=== PATIENT | female | born 1950 | race Caucasian/White ===

== ENCOUNTER 2018-08-19 14:41 | Inpatient (IN) ==
--- NOTE | 2018-08-19 14:54 | Emergency Department Note ---
Disposition Clinical Impression: Expressive aphasia Disposition: Admitted As Inpatient Condition: Fair Referrals: NONE,PCP [Primary Care Provider] - Forms: ED Satisfaction Letter Time of Disposition: 15:44 Neuro HPI - General Chief Complaint: ED Neuro Symptoms/Deficit Stated Complaint: Nuero symptoms since yesterday Time Seen by Provider: 08/19/18 14:43 Source: patient, EMS Mode of arrival: EMS Limitations: no limitations Nursing Notes Reviewed: Yes Vital Signs Reviewed: Yes - History of Present Illness HPI Narrative: Patient is a 68-year-old female who was seen at [facility] emergency department yesterday for expressive aphasia, had a full stroke workup, returned to baseline, and was discharged home. Patient spoke with a family member on the phone last night at 11 PM and family member states that there speech was normal and at baseline. This morning patient had family visiting her who noticed that she was slurring her words again, so called EMS and had her brought in for evaluation. Patient is not complaining of anything right now, is still smoking approximately a pack and a half per day, but had no complaints of any pain at this moment. Stroke alert was called and patient was taken immediately to CAT scan suite and [facility] was notified. Pt had initial NIHSS of 3. - Related Data Home Medications: Home Medications Medication Instructions Recorded Confirmed amLODIPine [Norvasc] 5 mg PO DAILY 08/10/16 08/19/18 Budesonide/Formoterol 160/4.5 1 puff IH BIDR 08/19/18 08/19/18 [Symbicort 160/4.5] Furosemide [Lasix] 40 mg PO DAILY 08/19/18 08/19/18 Gabapentin [Neurontin] 300 mg PO BID 08/19/18 08/19/18 Lisinopril-HCTZ 10-12.5 [Prinzide 2 each PO DAILY 08/19/18 08/19/18 10-12.5] Metoprolol [Lopressor] 25 mg PO DAILY 08/19/18 08/19/18 Previous Rx's Medication Instructions Recorded Aspirin [Ecotrin] 325 mg PO DAILY 30 Days #30 08/18/18 tablet. Allergies/Adverse Reactions: Allergies Allergy/AdvReac Type Severity Reaction Status Date / Time No Known Allergies Allergy Verified 08/10/16 13:24 Review of Systems: All systems ED: reviewed and negative except as stated. Constitutional: Denies: fever, chills ENT ED: Denies: ear pain, throat pain Cardiovascular: Denies: chest pain, palpitations Respiratory: Denies: cough, Reports: dyspnea Gastrointestinal: Denies: abdominal pain, nausea, vomiting, diarrhea, constipation Genitourinary: Denies: urgency, dysuria, frequency Musculoskeletal: Denies: back pain, neck pain Integumentary: Denies: rash, abrasion Neurological: Denies: headache, weakness, numbness, paresthesias Reports: difficulty with speech Psychiatric: Denies: anxiety, depression Endocrine: Denies: fatigue, heat or cold intolerance Hematological/Lymphatic: Denies: easy bleeding, easy bruising Allergic/Immunologic: Denies: facial swelling, urticaria Past Medical History - Past Medical History Attestation: Yes The following information was validated with the patient. 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 No acute distress. Well developed, well nourished. Head: atraumatic, normocephalic. ENT: No conjunctival injection, no scleral icterus. PERRLA. EOMI. Oropharynx non- erythematous. mucous membranes moist. Neuro: No focal deficits, no speech deficit, no facial droop, mentating well. BUE/BLE Str 5/5 intact sensation. Mild difference in facial palsy when patient is smiling, left side is not as high when compared to right. Pts speech is somewhat difficult to understanding, but words can be made out. Pulm: Wheezes in yoly lungs. On oxygen at baseline. Not requiring more oxygen to maintain appropriate saturation. Cardio: RRR no m/r/g. Chest not tender to palpation. Abd: Soft, non-distended. Normoactive bowel sounds. Non-tender to palpation. No guarding. Non rigid. Extremities: Radial pulses 2+ yoly, No LE edema. No cyanosis, clubbing. Skin: warm, dry, intact. Diffusely dry skin with extensive flaking. Psych: Appropriate mood and affect. Answers questions appropriately. Cooperative with exam. Course Course Narrative: Initial Head CT showed no acute intracranial findings. Will obtain Stroke labs and consult with [facility]. - Consultations Consultation #1: Spoke with Dr. Srinivasan, [facility], who states that since her LKW was 11pm last night and her NIH was 3, that she was not a candidate for tPA and could be kept here for further stroke workup. Time: 15:12 Consultation #2: Updated patient and family on plan of care and they agreed with plan for admission here and further workup. Time: 16:18 Vital Signs Temperature 98.3 F 08/19/18 14:49 Pulse Rate 77 08/19/18 14:49 Respiratory Rate 16 08/19/18 14:49 Blood Pressure 154/67 08/19/18 14:49 O2 Sat by Pulse Oximetry 99 08/19/18 14:49 Temperature 98.3 F 08/19/18 14:49 Pulse Rate 64 08/19/18 16:13 Respiratory Rate 18 08/19/18 16:13 Blood Pressure 131/57 08/19/18 16:13 O2 Sat by Pulse Oximetry 100 08/19/18 16:13 Oxygen Delivery Oxygen Delivery Nasal Cannula Neuro Symptoms/Deficit - MDM Narrative Medical decision making narrative: [facility] recommended that she be worked up here as an inpatient. She was outside of the tPA window, as her LKW was 2300 last night and her NIHSS was very low (3). Pt did not return to baseline while in the department. Discussed findings with patient who was amenable to admission. Patient was given an opportunity to ask questions at bedside and all of their concerns were addressed. Patient verbalized understanding and agreement with plan of care. Pt remained stable while in the department. Spoke with hospitalist, Dr. Morgan, who was agreeable to admission and accepted the patient to his service. - Medical Records Medical records reviewed: Yes I reviewed the patient's medical records. - Lab Data Lab results reviewed: Yes I reviewed the patient's lab results. Result diagrams: 08/19/18 15:04 08/19/18 15:04 Lab Results 08/19/18 08/19/18 08/19/18 Range/Units 15:04 15:04 15:04 WBC 8.2 (4.3-11.1) K/mcL RBC 3.84 (3.82-4.97) M/mcL Hgb 11.1 L (11.5-15.4) g/dL Hct 37.0 (35.3-44.9) % MCV 96.4 (83.0-100.0) fL MCH 28.9 (28.0-33.3) pg MCHC 30.0 L (31.6-35.5) g/dL RDW 12.7 (11.5-14.5) % Plt Count 232 (140-400) K/mcL MPV 10.5 (9.4-12.4) fL PT 11.4 (9.4-12.1) Seconds INR 1.0 APTT 33.7 (26.0-36.0) Seconds Sodium 141 (136-145) mEq/L Potassium 4.6 (3.5-5.1) mEq/L Chloride 103 (98-107) mEq/L Carbon Dioxide 34 H (23-29) mEq/L BUN 38 H (8-23) mg/dL Creatinine 2.12 H (0.60-1.20) mg/dL Est GFR ( Amer) 28 L (> 60) Est GFR (Non-Af Amer) 23 L (> 60) BUN/Creatinine Ratio 18 (6-26) Glucose 117 H (70-105) mg/dL Calculated Osmolality 302 H (280-300) Calcium 9.8 (8.6-10.3) mg/dL Troponin I < 0.03 (< 0.04) ng/mL - Radiology Data Radiology results reviewed: Yes I reviewed the patient's radiology results. Head CT 08/19/18 14:47 IMPRESSION: No acute intracranial abnormality. Findings were discussed with Isadora New at 3:06 pm on 08/19/2018. D/ / Harris Berry MD / Harris Berry MD Interpreting Provider: Harris Berry MD - EKG Data EKG attestation: Yes I reviewed and interpreted this EKG. EKG results narrative: HR 70, Rhythm sinus, axis left. FL 184, QRS 85, QTc 459. No ST elevation or depression. No criteria for LVH. All intervals within normal limits. NIH Stroke Scale - Level of Consciousness LOC: Alert - LOC Questions LOC Questions: Answers both correctly - LOC Commands LOC Commands: Performs both correctly - Best Gaze Best Gaze: Normal - Visual Visual: No visual loss - Facial Palsy Facial Palsy: Minor asymmetry on smiling, flattened nasolabial fold - Motor Arms Motor Arm-Left: No drift for 10 seconds Motor Arm-Right: No drift for 10 seconds - Motor Legs Motor Leg-Left: No drift for 5 seconds Motor Leg-Right: No drift for 5 seconds - Limb Ataxia Limb Ataxia: Absent of affected limb too weak to perform exam - Sensory Sensory: Normal - Best Language Best Language: Mild to moderate aphasia. Examiner can identify picture from response - Dysarthria Dysarthria: Mild, slurs some words - Extinction and Inattention Extinction and Inattention: Normal - NIHSS Total Score NIHSS Total Score: 3 TPA Checklist - LKW: 3-4.5 hrs Add. Warnings/Precautions Patient/family understanding: The patient/family members have been counseled and understood the risk, benefit, and alternatives of treatment.
--- NOTE | 2018-08-19 14:55 | Emergency Department Note ---
Disposition Clinical Impression: Expressive aphasia Disposition: Still a Patient Forms: ED Satisfaction Letter Neuro HPI - General Chief Complaint: ED Neuro Symptoms/Deficit Stated Complaint: Nuero symptoms since yesterday Time Seen by Provider: 08/19/18 14:43 - Related Data Home Medications: Home Medications Medication Instructions Recorded Confirmed Furosemide [Lasix] 60 mg PO DAILY 08/10/16 08/10/16 Gabapentin [Gralise] 300 mg PO TID 08/10/16 08/10/16 Lisinopril [Zestril] 5 mg PO DAILY 08/10/16 08/10/16 amLODIPine [Norvasc] 5 mg PO DAILY 08/10/16 08/10/16 Previous Rx's Medication Instructions Recorded Aspirin [Ecotrin] 325 mg PO DAILY 30 Days #30 08/18/18 tablet. 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 Warnings/Precautions Patient/family understanding: The patient/family members have been counseled and understood the risk, benefit, and alternatives of treatment. Attestation Statement - Attestation Attestation: I examined this patient and my medical decision-making was reviewed with the Resident Physician. I agree with the documented findings, disposition and treatment plan as described except to the extent set forth below. 68 yaer old female presnets to the ED with expressive aphasia that started at 1300 today. Kelley was recenlty admittd to [facility] and had a HCT that was negative. Kelley is dispaying severe expressive aphasia at bedside and we have called STROKE ALERT. update on patient; BOLA was actull 2300 last night before she went to bed, it appears that she woke up this way in the morning.
[2018-08-19 15:11] LABS: Hemoglobin 11.1 g/dL (11.5-15.4); Mean Corpuscular Hemoglobin 28.9 pg (28.0-33.3); Mean Corpuscular Volume 96.4 fL (83.0-100.0); Mean Platelet Volume 10.5 fL (9.4-12.4); Platelet Count 232 K/mcL (140-400); Red Blood Count 3.84 M/mcL (3.82-4.97); Red Cell Distribution Width 12.7 % (11.5-14.5)
[2018-08-19 15:20] LABS: Prothrombin Time 11.4 Seconds (9.4-12.1)
[2018-08-19 15:23] LABS: Activated Partial Thrombo Time 33.7 Seconds (26.0-36.0)
[2018-08-19 15:31] LABS: BUN/Creatinine Ratio 18 (6-26); Blood Urea Nitrogen 38 mg/dL (8-23); Calcium 9.8 mg/dL (8.6-10.3); Carbon Dioxide 34 mEq/L (23-29); Chloride 103 mEq/L (98-107); Glucose 117 mg/dL (70-105); Osmolality,Calculated 302 (280-300); Potassium 4.6 mEq/L (3.5-5.1); Sodium 141 mEq/L (136-145); eGFR For Non-African Americans 23 (> 60)
[2018-08-19 15:32] LABS: Troponin I < 0.03 ng/mL (< 0.04)
[2018-08-19] MEDS ORDERED: Naloxone 0.4 MG/ML INJ IVP PRN (17:08)
--- NOTE | 2018-08-19 17:23 | Internal Med History&Physical ---
Date of Encounter: 08/19/18 Time of Encounter: 17:21 Internal Medicine - H&P: HPI Chief complaint: Speech difficulty Admitted From: Emergency Dept Plans for Post Hospital Care: Home History of present illness: Ms. Padgett is a 68 year old female patient with a history of chronic tobacco abuse, hypertension, who presented to the ER with complaints of expressive if ECF. Symptoms began yesterday morning when she woke up with these symptoms. Family reports that her symptoms improved through the day but she again woke up today morning with similar symptoms and her symptoms have not improved since then. She does not have any other focal weakness. She has blurred vision but she is supposed to be wearing glasses. Denies any ringing sensation in her clears. No headaches. No chest pain or palpitations. No nausea or vomiting. No abdominal pain. Denies any prior history of stroke or TIA. Past Med Surg Social Fam HX - Past Medical History Attestation: Yes The following information was validated with the patient. Source: patient Medical history: hypertension, other Psychiatric history: no psych history - Social History Smoking Status: Current every day smoker Smokeless Tobacco Status: No Alcohol use: none Drug use: none - Additional Family History Additional family history: Family history reviewed and found to be noncontributory at this time Internal Medicine - H&P: Meds amLODIPine [Norvasc] 5 mg PO DAILY 08/10/16 [History] Aspirin [Ecotrin] 325 mg PO DAILY 30 Days #30 tablet. 08/18/18 [Rx] Budesonide/Formoterol 160/4.5 [Symbicort 160/4.5] 1 puff IH BIDR 08/19/18 [History] Furosemide [Lasix] 40 mg PO DAILY 08/19/18 [History] Gabapentin [Neurontin] 300 mg PO BID 08/19/18 [History] Lisinopril-HCTZ 10-12.5 [Prinzide 10-12.5] 2 each PO DAILY 08/19/18 [History] Metoprolol [Lopressor] 25 mg PO DAILY 08/19/18 [History] Allergy/AdvReac Type Severity Reaction Status Date / Time No Known Allergies Allergy Verified 08/10/16 13:24 All Systems PM: A 10-system review of systems was performed and is negative for pertinent findings except as documented above in the HPI. - Constitutional Constitutional: no chills, no fever(s), no night sweats - EENT Eyes: no change in vision, no discharge, no pain, no photophobia Ears: no ear discharge, no ear pain, no tinnitus Nose, mouth and throat: no dysphagia, no nasal discharge, no neck pain, no sore throat - Cardiovascular Cardiovascular ROS IM: no chest pain, no diaphoresis, no dyspnea, no lightheadedness, no palpitations, no syncope - Respiratory Respiratory: no cough, no dyspnea, no wheezing, no excessive phlegm production - Gastrointestinal Gastrointestinal: no abdominal pain, no diarrhea, no hematemesis, no hematochezia, no melena, no nausea, no vomiting - Genitourinary Genitourinary: no change in urinary stream, no dysuria, no flank pain, no hematuria - Musculoskeletal Musculoskeletal ROS IM: no numbness, no tingling - Integumentary Integumentary IM: no rash, no unusual bruising - Neurological Neurological ROS: as per HPI, abnormal speech - Hematologic/Lymphatic Hematologic/Lymphatic: no easy bruising - Constitutional Vitals: Temp Pulse Resp BP Pulse Ox 98.3 F 64 18 131/57 100 08/19/18 14:49 08/19/18 16:13 08/19/18 16:13 08/19/18 16:13 08/19/18 16:13 General appearance: Present: cooperative, mild distress, A&O X 3, pleasant, obese, answers questions appropriately Exam: General: Patient is alert, no acute distress, oriented x 3 Head: atraumatic, normocephalic, ENT: Mucous membranes moist Eye: normal appearance, PERRL, no scleral icterus, no conjunctival injection Neck: normal inspection, trachea midline, full ROM, no carotid bruits Chest: normal inspection, symmetric chest rise Respiratory: Decreased air entry bilaterally. Prolonged expiratory phase and end-expiratory wheezing Cardiovascular: Regular rate and rhythm. s1 and s2 normal No clicks, rubs, gallops, or murmurs. No pedal edema Abdomen: Abdomen is soft, nontender. Bowel sounds are present Musculoskeletal: Spontaneously moving all extremities Skin: warm, dry, intact. Neuro: Alert oriented x 3 normal except expressive aphagia present, rest of cranial nerve examination is normal. No focal deficits. Normal strength and sensation in all 4 extremities. Psych: Patient's affect is normal Internal Med - H&P Results - Labs CBC & Chem 7: 08/19/18 15:04 08/19/18 15:04 Labs: Short CBC 08/19/18 Range/Units 15:04 WBC 8.2 (4.3-11.1) K/mcL Hgb 11.1 L (11.5-15.4) g/dL Hct 37.0 (35.3-44.9) % Plt Count 232 (140-400) K/mcL BMP 08/19/18 15:04 Sodium 141 Potassium 4.6 Chloride 103 Carbon Dioxide 34 H BUN 38 H Creatinine 2.12 H Glucose 117 H Calcium 9.8 Cardiac Enzymes 08/19/18 Range/Units 15:04 Troponin I < 0.03 (< 0.04) ng/mL - EKG Data -: EKG Interpreted by Myself EKG shows normal: sinus rhythm - Impressions ITS Impressions Head CT 08/19/18 14:47 IMPRESSION: No acute intracranial abnormality. Findings were discussed with Isadora New at 3:06 pm on 08/19/2018. D/ / Harris Berry MD / Harris Berry MD Interpreting Provider: Harris Berry MD - Assessment and Plan (1) Expressive aphasia Current Visit: Yes Status: Acute Assessment and plan: Patient presented with symptoms of expressive aphagia. Stroke alert had been called. We will continue with stroke workup as CT of the head was negative. Obtain MRI of the brain, check lipid profile, A1c level. Obtain carotid Dopplers and 2-D echocardiogram. NIHSS monitoring. High risk for complications. Will place patient on aspirin and statin. (2) Chronic kidney disease, stage III (moderate) Current Visit: Yes Status: Chronic Assessment and plan: Creatinine 2.12. At baseline. (3) Essential hypertension Current Visit: Yes Status: Chronic Assessment and plan: Monitor blood pressure. Allow for permissive hypertension for 48 hours since onset of initial symptoms. (4) Tobacco abuse Current Visit: Yes Status: Chronic Assessment and plan: Patient smokes up to 2 packs per day of cigarettes. Consult about cessation. Will order nicotine patch as needed - Time Spent With Patient Total time spent is greater than 50% in coordination of care (as documented) at patient's floor/unit and/or counseling patient:
[2018-08-19] MEDS: Aspirin Enteric Coated 81 MG Tablet PO SCH (18:19)
[2018-08-19] MEDS: Gabapentin 300 MG CAPSULE PO SCH (19:55)
--- NOTE | 2018-08-19 21:04 | Event Note ---
Date of Encounter: 08/19/18 Time of Encounter: 21:02 Dr. Nesbitt and I were notified by nurse of brain MRI results showing acute to subacute lacunar infarct of right posterior frontal lobe subcortical white matter and mild chronic small ischemic disease. Discussed findings with patient and family. PT, OT already ordered. We will order ST. Neurology consult ordered, will need called in a.m.
[2018-08-19] MEDS: Budesonide/Formoterol 160/4.5 1 PUFF INH IH SCH (22:08)
[2018-08-20 05:18] LABS: Basophils % 0.4 %; Eosinophils # 0.1 K/mcL (0.0-0.6); Eosinophils % 1.7 %; Hematocrit 34.5 % (35.3-44.9); Hemoglobin 10.3 g/dL (11.5-15.4); Immature Granulocytes % 0.1 % (0-4); Lymphocytes # 1.8 K/mcL (0.6-4.6); Lymphocytes % 23.9 %; Mean Corpuscular HGB Conc 29.9 g/dL (31.6-35.5); Mean Corpuscular Hemoglobin 28.7 pg (28.0-33.3); Mean Corpuscular Volume 96.1 fL (83.0-100.0); Mean Platelet Volume 11.1 fL (9.4-12.4); Monocytes # 0.7 K/mcL (0.0-1.3); Monocytes % 8.8 %; Platelet Count 223 K/mcL (140-400); Red Blood Count 3.59 M/mcL (3.82-4.97); Red Cell Distribution Width 12.7 % (11.5-14.5); Segmented Neutrophils % 65.1 %
[2018-08-20 05:26] LABS: Calcium 9.6 mg/dL (8.6-10.3); Chol/HDL Ratio 6.5 (0-4.9); Potassium 4.4 mEq/L (3.5-5.1)
--- NOTE | 2018-08-20 08:23 | Neurology - Consult Note ---
Date of Encounter: 08/20/18 Time of Encounter: 11:20 Assessment and Plan (1) CVA (cerebral vascular accident) Current Visit: Yes Status: Acute - Evidence of acute CVA which is likely causing patient symptoms of expressive aphasia as well as dysarthria - MRI of the brain on 08/19/18 shows acute to subacute lacunar infarct right posterior frontal lobe subcortical white matter - Risk factors including hypertension, hyperlipidemia, smoking history, family history - Patient reports some improvement of symptoms is so symptomatic - Patient denies home aspirin, previous CVA, previous heart disease - Carotid ultrasound and echocardiogram have been ordered and are pending - PT/OT/speech therapy consulted - Modified barium swallow scheduled for this afternoon - Neurologically on exam, patient does have continued dysarthria as well as possible slight weakness on her left side - Outside window of both permissive hypertension as well as TPA Plan - Continue PT/OT/speech therapy - Await results of workup - Recommend continuing aspirin, will change to high intensity statin - We will continue to follow Qualifiers: CVA mechanism: unspecified Qualified Code(s): I63.9 - Cerebral infarction, unspecified (2) Expressive aphasia Current Visit: Yes Status: Acute Secondary to stroke as above, appears to be improving clinically (3) Essential hypertension Current Visit: Yes Status: Chronic Well-controlled this time I window for permissive hypertension (4) Tobacco abuse Current Visit: Yes Status: Chronic Advised and encourage cessation History of Present Illness Chief complaint: Slurred speech HPI: Ms. Padgett is a 68 year old female with past medical history of hypertension, hyperlipidemia, tobacco use who presented to the emergency department with complaint of expressive aphasia. Patient states that symptoms originally began on Thursday and lasted approximately 4-5 hours before improving. She still does express concerns over slurred speech. She has never had symptoms similar to this in the past. She states that she awoke in the morning with the symptoms. Of note, she was seen in the emergency department in [place] and 08/18/18 with similar symptoms and was discharged home after a negative head CT and chest x-ray. She was scheduled to follow up with outpatient neurology at that time. Patient denies a daily aspirin. She denies any other symptoms including fevers, chills, recent illness, numbness, tingling, focal deficits, dysphagia. She does report that her sister and mother has also had strokes in the past. On presentation to the emergency department, vital signs were within normal limi ts and she is tolerating 100% oxygen on 3 L via nasal cannula. Laboratory results were significant for a baseline anemia, mildly elevated bicarbonate 34, BUN/creatinine of 38/2.12 which is again consistent with her baseline. Hemoglobin A1c was 5.8% and lipid panel significant only for a mildly low HDL at 22. CT of the head and was again obtained and showed no acute intracranial abnormality. MRI of the brain was obtained later that night and showed acute to subacute lacunar infarct in the right posterior frontal lobe subcortical white matter. At this time, neurology was consulted for acute CVA. Today during exam, patient states that her symptoms have improved since onset however she is still experiencing some expressive aphasia as well as slurred speech. Continues to deny any symptoms of focal deficits, numbness, tingling, weakness. No family is present at bedside to establish baseline. Past Med Surg Social Fam HX - Past Medical History Medical history: hypertension, other Psychiatric history: no psych history - Social History Smoking Status: Current every day smoker Smokeless Tobacco Status: No Alcohol use: none Drug use: none Medications and Allergies amLODIPine [Norvasc] 5 mg PO DAILY 08/10/16 [History] Aspirin [Ecotrin] 325 mg PO DAILY 30 Days #30 tablet. 08/18/18 [Rx] Budesonide/Formoterol 160/4.5 [Symbicort 160/4.5] 1 puff IH BIDR 08/19/18 [History] Furosemide [Lasix] 40 mg PO DAILY 08/19/18 [History] Gabapentin [Neurontin] 300 mg PO BID 08/19/18 [History] Lisinopril-HCTZ 10-12.5 [Prinzide 10-12.5] 2 each PO DAILY 08/19/18 [History] Metoprolol [Lopressor] 25 mg PO DAILY 08/19/18 [History] Allergy/AdvReac Type Severity Reaction Status Date / Time No Known Allergies Allergy Verified 08/10/16 13:24 All Systems: The remainder of the systems were reviewed and are negative Review of Systems: - Constitutional: Denies fevers, chills, weight loss, generalized fatigue - Head/Neck: Denies AGGARWAL, neck stiffness - EENT: Denies vision changes/blurriness, rhinorrhea, congestion, sore throat, odynaphagia, dysphasia - CVS: Denies chest pain, palpitations, BLACK, orthopnea, edema - Pulm: Denies SOB, cough, sputum, - GI: Denies abdominal pain, anorexia, nausea, vomiting, diarrhea - : Denies dysuria, increased frequency, urgency - MSK: Denies joint pain, limited ROM - Skin: Denies rashes, ulcers, color changes, - Neuro: Admits to difficulty with speech. Denies AGGARWAL, paresthesias, focal deficits, ataxia, Physical Examination - Vital Signs Vital Signs: Initial Vital Signs Temp Pulse Resp BP Pulse Ox 98.3 F 77 16 154/67 99 08/19/18 14:49 08/19/18 14:49 08/19/18 14:49 08/19/18 14:49 08/19/18 14:49 - Exam Exam: Dysarthria present, some difficulty with word finding. - Constitutional General appearance: comfortable - Neurologic Sensorimotor examination: intact Detailed motor examination: grossly full strength in all extremities Motor examination - right side: 5/5: deltoids, biceps, triceps, forex trader, hip flexors, tibialis Anterior, toe extension (EHL), plantarflexion Motor examination - left side: 4/5: deltoids, biceps, triceps, hip flexors, forex trader, 5/5: quadriceps, tibialis Anterior, toe extension (EHL), plantarflexion Detailed sensory examination: intact Reflexes: Biceps: 2+, Patella: 2+ Mental Status Examination: awake, alert, oriented to person, oriented to place, oriented to time, follows commands appropriately, answers questions appropriately, opens eyes to voice, follows simple commands Cranial nerve examination: PERRL, EOMI, sensory to face intact, mastication intact, no facial asymmetry is present, hearing is intact symmetrically, soft palate elevates bilaterally upon phonation, flexes SCM and trapezius muscles s ymmetrically with full power, tongue protrudes midline Cerebellar examination: performs finger to nose and heel to lai symmetrically without ataxia Results - Laboratory Findings CBC and BMP: 08/20/18 04:00 08/20/18 04:00 Abnormal lab findings: Abnormal lab results RBC 3.59 M/mcL (3.82-4.97) L 08/20/18 04:00 Hgb 10.3 g/dL (11.5-15.4) L 08/20/18 04:00 Hct 34.5 % (35.3-44.9) L 08/20/18 04:00 MCHC 29.9 g/dL (31.6-35.5) L 08/20/18 04:00 Carbon Dioxide 35 mEq/L (23-29) H 08/20/18 04:00 BUN 39 mg/dL (8-23) H 08/20/18 04:00 Creatinine 2.08 mg/dL (0.60-1.20) H 08/20/18 04:00 Est GFR ( Amer) 29 (> 60) L 08/20/18 04:00 Est GFR (Non-Af Amer) 24 (> 60) L 08/20/18 04:00 POC Glucose 123 mg/dL (70-99) H 08/19/18 15:02 Calculated Osmolality 304 (280-300) H 08/20/18 04:00 HDL Cholesterol 22 mg/dL (40-59) L 08/20/18 04:00 Cholesterol/HDL Ratio 6.5 (0-4.9) H 08/20/18 04:00 Consult Discharge Plan - Plan Referrals: NONE,PCP [Primary Care Provider] -
[2018-08-20 08:59] LABS: Estimated Average Glucose 120 mg/dl; Hemoglobin A1C 5.8 %
[2018-08-20] MEDS ORDERED: E-Z-HD (BARIUM SULF) SUSPENSION PO ONE (11:59)
[2018-08-20] MEDS ORDERED: E-Z-PAQUE (BARIUM SULF) SUSP 1 BOTTLE PO ONE (11:59)
[2018-08-20] MEDS: Budesonide/Formoterol 160/4.5 1 PUFF INH IH SCH ×2 (12:06→20:36)
[2018-08-20] MEDS: Aspirin Enteric Coated 81 MG Tablet PO SCH (13:00)
[2018-08-20] MEDS: amLODIPine 5 MG TABLET PO SCH (13:00)
[2018-08-20] MEDS: Gabapentin 300 MG CAPSULE PO SCH ×2 (13:00→20:42)
[2018-08-20] MEDS: Furosemide 40 MG TABLET PO SCH (13:01)
--- NOTE | 2018-08-20 15:11 | Internal Med Progress Note ---
Hospitalist Progress Note - Encounter Date of Encounter: 08/20/18 Time of Encounter: 08:30 - Subjective Interval History: Evaluated patient earlier this morning as she was being taken down for ultrasound. Continues aspirin difficulty. No new complaints overnight. No headache or dizziness. No other focal deficits. - Exam Vitals: Temp Pulse Resp BP Pulse Ox 97.8 F 88 15 123/69 91 08/20/18 14:55 08/20/18 14:55 08/20/18 14:55 08/20/18 14:55 08/20/18 14:55 Exam: General: Patient is alert, no acute distress, oriented x 3 ENT: Mucous membranes moist Respiratory: Coarse breath sounds bilaterally, mild end expiratory wheezing Cardiovascular: Regular rate and rhythm. s1 and s2 normal No clicks, rubs, gallops, or murmurs. No pedal edema Abdomen: Abdomen is soft, nontender. Bowel sounds are present Musculoskeletal: Spontaneously moving all extremities Skin: warm, dry, intact. Neuro: Alert oriented x 3 speech deficit. Otherwise cranial nerves are normal, no other focal deficits. - Assessment and Plan (1) CVA (cerebral vascular accident) Current Visit: Yes Status: Acute Assessment and Plan: Patient with acute lacunar infarct involving the right posterior frontal lobe subcortical white matter. Neurology consult appreciated. MRI of the brain reviewed. Echocardiogram does not show any PFO. Speech therapy evaluation completed. Recommend thin liquids and regular diet. PTOT evaluation also in progress. Recommend home health. We will work on making arrangements for this. Continue aspirin, statin. (2) Expressive aphasia Current Visit: Yes Status: Acute Assessment and Plan: Management as above. Continue speech therapy (3) Chronic kidney disease, stage III (moderate) Current Visit: Yes Status: Chronic Assessment and Plan: Renal function is stable. Creatinine 2.08. (4) Essential hypertension Current Visit: Yes Status: Chronic Assessment and Plan: Blood pressure is well controlled. (5) Tobacco abuse Current Visit: Yes Status: Chronic Assessment and Plan: Counseled about cessation. Nicotine patch ordered. DVT Prophylaxis: Subcutaneous heparin - Time Spent with Patient Total time spent is greater than 50% in coordination of care (as documented) at patient's floor/unit and/or counseling patient: Internal Medicine: Result - Labs CBC & Chem 7: 08/20/18 04:00 08/20/18 04:00 Labs: Short CBC 08/19/18 08/20/18 Range/Units 15:04 04:00 WBC 8.2 7.7 (4.3-11.1) K/mcL Hgb 11.1 L 10.3 L (11.5-15.4) g/dL Hct 37.0 34.5 L (35.3-44.9) % Plt Count 232 223 (140-400) K/mcL Neutrophils # 5.0 (1.6-8.9) K/mcL BMP 08/19/18 08/20/18 15:04 04:00 Sodium 141 142 Potassium 4.6 4.4 Chloride 103 104 Carbon Dioxide 34 H 35 H BUN 38 H 39 H Creatinine 2.12 H 2.08 H Glucose 117 H 104 Calcium 9.8 9.6 Cardiac Enzymes 08/19/18 Range/Units 15:04 Troponin I < 0.03 (< 0.04) ng/mL - ABG Interpretation ABG results: PT/INR, D-dimer PT 11.4 Seconds (9.4-12.1) 08/19/18 15:04 - Impressions Impressions Head CT 08/19/18 14:47 IMPRESSION: No acute intracranial abnormality. Findings were discussed with Isadora New at 3:06 pm on 08/19/2018. D/ / Harris Berry MD / Harris Berry MD Interpreting Provider: Harris eBrry MD Brain MRI 08/19/18 17:08 IMPRESSION: Acute to subacute lacunar infarct right posterior frontal lobe subcortical white matter. Mild chronic small ischemic disease. D/ / Guevara Barraza / Guevara Barraza Interpreting Provider: Guevara Barraza Echocardiogram 08/20/18 09:00 Impressions: LVEF 60%. Mild left ventricular diastolic dysfunction. Normal right ventricular structure and function. No significant valvular dysfunction. No pulmonary hypertension. No evidence of PFO with agitated saline contrast. Left Ventricular Wall Motion: Rest Echo Findings All wall segments showed normal motion. Findings: Study Quality * Technically adequate exam. ECG Findings * Normal sinus rhythm. Left Ventricle * LVEF 60%. * Normal LV chamber size, wall thickness and function. * Mild left ventricular diastolic dysfunction. Right Ventricle * Normal right ventricular structure and function. Left Atrium * Mildly dilated left atrium. Right Atrium * Normal right atrial size. Aortic Valve * No aortic regurgitation. * Trileaflet aortic valve. * No aortic stenosis. Mitral Valve * Trace mitral regurgitation. * Normal mitral valve structure. * No mitral stenosis. Tricuspid Valve * Tricuspid valve not well visualized. * No tricuspid regurgitation. Pulmonic Valve * Pulmonic valve is not well visualized. * No pulmonic stenosis. * No pulmonic regurgitation. Pulmonary Artery * Pulmonary artery not well visualized. Aorta * Normally sized aortic root. Pericardium * There is no pericardial effusion present. Interatrial Septum * No evidence of PFO by color Doppler. * No evidence of PFO with agitated saline contrast. IVC * The IVC is not dilated. Videofluoroscopic Swallow 08/20/18 12:00 IMPRESSION: No evidence of aspiration. Please see separate speech pathology report for full discussion of findings and recommendations. D/ / Jeff Lincoln MD / Jeff Lincoln MD Interpreting Provider: Jeff Lincoln MD Consult Discharge Plan - Plan Referrals: NONE,PCP [Primary Care Provider] - (1) CVA (cerebral vascular accident) Qualifiers: CVA mechanism: other Qualified Code(s): I63.89 - Other cerebral infarction
[2018-08-20] MEDS ORDERED: Nicotine 21 MG PATCH.TD24 TD PRN (15:12)
[2018-08-20] MEDS: *HR* Heparin 5,000 UNIT/ML VIAL SQ SCH (18:17)
[2018-08-21] MEDS: *HR* Heparin 5,000 UNIT/ML VIAL SQ SCH (05:16)
[2018-08-21 07:00] VITALS: BP 124/68
[2018-08-21] MEDS: Budesonide/Formoterol 160/4.5 1 PUFF INH IH SCH (08:47)
[2018-08-21] MEDS: Gabapentin 300 MG CAPSULE PO SCH ×2 (09:12→09:13)
[2018-08-21] MEDS: Furosemide 40 MG TABLET PO SCH (09:12)
[2018-08-21] MEDS: Aspirin Enteric Coated 81 MG Tablet PO SCH (09:12)
[2018-08-21] MEDS: amLODIPine 5 MG TABLET PO SCH (09:12)
--- NOTE | 2018-08-21 10:19 | Neurology Progress Note ---
Date of Encounter: 08/21/18 Time of Encounter: 10:16 Assessment and Plan (1) CVA (cerebral vascular accident) Current Visit: Yes Status: Acute Small vessel lacunar infarct involving the right frontal subcortical area causing dysarthria and left sided paresis, improving. stroke work up completed. MRA of neck showed no significant ICA stenosis. Will keep her on Aspirin 81mg daily as secondary prevention for CVA. will discontinue plavix 75mg daily. ( frankie shoemakerrenaldo only started aspirin at [facility] [place] [facility] after onset of stroke symptoms) Continue statin therapy. PT and OT. Qualifiers: CVA mechanism: unspecified Qualified Code(s): I63.9 - Cerebral infarction, unspecified Subjective Principal diagnosis: CVA Interval history: Patient seen and examined. She is doing a little better in terms of her speech. She is able to repeat and she is comprehensive. Still slightly dysarthric however. Left-sided weakness also improved although there may be subtle weakness in hand assisted living assistant to the left side. Patient's mental status appears intact. Patient's carotid artery duplex study showed bilateral ICA stenosis at about 60- 79% bilaterally. Therefore we ordered MA of brain and neck without contrast which showed only mild atherosclerotic changes in the cervical arterial vasculature. Patient was started aspirin 81 mg daily few days ago when she was evaluated at [facility] emergency room. Therefore the patient is considered aspirin naive. We will discontinue Plavix and keep her on aspirin only Objective - Constitutional Vitals: Temp Pulse Resp BP Pulse Ox 98.1 F 97 16 124/68 92 08/21/18 06:59 08/21/18 06:59 08/21/18 08:47 08/21/18 06:59 08/21/18 08:47 - Neurological Exam Sensorimotor examination: Present: intact Motor Examination: Present: grossly full strength in all extremities Motor examination - right side: 5/5: deltoids, biceps, triceps, wrist flexion, wrist extension, assisted living assistant, hip flexors, tibialis Anterior, quadriceps, toe extension (EHL), plantarflexion Motor examination - left side: 5/5: deltoids, biceps, triceps, wrist flexion, wrist extension, hip flexors, assisted living assistant, quadriceps, tibialis Anterior, toe extension (EHL), plantarflexion Sensation intact: Present: intact Posture: Present: other (None) Reflex and gait examination: intact Reflexes: Biceps: 1+, Triceps: 1+, Brachioradialis: 1+, Patella: 1+, Achilles: 1+ Mental Status Examination: Present: awake, alert, oriented to person, oriented to place, oriented to time, follows commands appropriately, answers questions appropriately, no agnosia, no aphasia, no aproxia, lucid Cranial nerve examination: Present: PERRL, EOMI, visual riggins intact, corneal reflexes brisk symmetrically, sensory to face intact, mastication intact, no facial asymmetry is present, no dysarthria (Slight dsyarthria noted. Language content is intact. Able to repeat well), hearing is intact symmetrically, soft palate elevates bilaterally upon phonation, gag reflex intact, flexes SCM and trapezius muscles symmetrically with full power, tongue protrudes midline Cerebellar examination: Present: performs finger to nose and heel to lai symmetrically without ataxia Results - Laboratory Findings CBC and BMP: 08/20/18 04:00 08/20/18 04:00 Abnormal lab findings: Abnormal lab results RBC 3.59 M/mcL (3.82-4.97) L 08/20/18 04:00 Hgb 10.3 g/dL (11.5-15.4) L 08/20/18 04:00 Hct 34.5 % (35.3-44.9) L 08/20/18 04:00 MCHC 29.9 g/dL (31.6-35.5) L 08/20/18 04:00 Carbon Dioxide 35 mEq/L (23-29) H 08/20/18 04:00 BUN 39 mg/dL (8-23) H 08/20/18 04:00 Creatinine 2.08 mg/dL (0.60-1.20) H 08/20/18 04:00 Est GFR ( Amer) 29 (> 60) L 08/20/18 04:00 Est GFR (Non-Af Amer) 24 (> 60) L 08/20/18 04:00 POC Glucose 123 mg/dL (70-99) H 08/19/18 15:02 Hemoglobin A1c 5.8 % (-5.6) H 08/20/18 04:00 Calculated Osmolality 304 (280-300) H 08/20/18 04:00 HDL Cholesterol 22 mg/dL (40-59) L 08/20/18 04:00 Cholesterol/HDL Ratio 6.5 (0-4.9) H 08/20/18 04:00 Consult Discharge Plan - Plan Referrals: NONE,PCP [Primary Care Provider] -
--- NOTE | 2018-08-21 10:40 | Discharge Summary ---
- NOTES TO OUTPATIENT PROVIDER Notes to Outpatient Provider: Patient with a history of chronic tobacco abuse, hypertension, chronic kidney disease who was hospitalized here after she presented to the ER with complaints of expressive aphasia. She was suspected of having a stroke and was initially observed with telemetry. She then underwent MRI of the brain which confirmed acute stroke with a lacunar infarct in the right posterior frontal lobe subcortical white matter. Urology was consulted. Patient also underwent echocardiogram, carotid Dopplers and MRA of the head and neck. She had mild stenosis in her carotids and she did not have any PFO. Patient also has an A1c of 5.8% and has been recommended to be on diabetic diet. Also recommend weight loss. Neurology has recommended that the patient continue to take aspirin and statin as prescribed. She has been evaluated by physical therapy and recommended home health. She will also need speech therapy after discharge which will be arranged for her. She has been counseled about smoking cessation. She will be discharged today after home health has been arranged. Date of Encounter: 08/21/18 Time of Encounter: 10:38 - Discharge Diagnosis (1) CVA (cerebral vascular accident) Priority: Primary Status: Acute Qualifiers: CVA mechanism: unspecified Qualified Code(s): I63.9 - Cerebral infarction, unspecified (2) Expressive aphasia Priority: Secondary Status: Acute (3) Chronic kidney disease, stage III (moderate) Priority: Secondary Status: Chronic (4) Essential hypertension Priority: Secondary Status: Chronic (5) Tobacco abuse Priority: Secondary Status: Chronic (6) Prediabetes Priority: Secondary Status: Acute Hospital course: Ms. Padgett is a 68 year old female Patient with a history of chronic tobacco abuse, hypertension, chronic kidney disease who was hospitalized here after she presented to the ER with complaints of expressive aphasia. She was suspected of having a stroke and was initially observed with telemetry. She then underwent MRI of the brain which confirmed acute stroke with a lacunar infarct in the right posterior frontal lobe subcortical white matter. Urology was consulted. Patient also underwent echocardiogram, carotid Dopplers and MRA of the head and neck. She had mild stenosis in her carotids and she did not have any PFO. Patient also has an A1c of 5.8% and has been recommended to be on diabetic diet. Also recommend weight loss. Neurology has recommended that the patient continue to take aspirin and statin as prescribed. She has been evaluated by ysical therapy and recommended home health. She will also need speech therapy after discharge which will be arranged for her. She has been counseled about smoking cessation. She will be discharged today after home health has been arranged. Discharge discussed with: patient, nurse - Time Spent with Patient Total time spent providing and/or coordinating discharge services: Time spent: Greater than 30 minutes (45 min) - Discharge Medications Prescriptions: Eric Atorvastatin [Lipitor] 80 mg PO HS #60 tablet Aspirin Enteric Coated [Aspirin EC] 81 mg PO DAILY #30 tablet. Lisinopril [Zestril] 10 mg PO DAILY #30 tablet Continue Budesonide/Formoterol 160/4.5 [Symbicort 160/4.5] 1 puff IH BIDR Furosemide [Lasix] 40 mg PO DAILY Gabapentin [Neurontin] 300 mg PO BID Metoprolol [Lopressor] 25 mg PO DAILY amLODIPine [Norvasc] 5 mg PO DAILY Discontinued Lisinopril-HCTZ 10-12.5 [Prinzide 10-12.5] 2 each PO DAILY No Action Aspirin [Ecotrin] 325 mg PO DAILY 30 Days #30 tablet. Home Medications: amLODIPine [Norvasc] 5 mg PO DAILY 08/10/16 [History] Aspirin [Ecotrin] 325 mg PO DAILY 30 Days #30 tablet. 08/18/18 [Rx] Budesonide/Formoterol 160/4.5 [Symbicort 160/4.5] 1 puff IH BIDR 08/19/18 [History] Furosemide [Lasix] 40 mg PO DAILY 08/19/18 [History] Gabapentin [Neurontin] 300 mg PO BID 08/19/18 [History] Metoprolol [Lopressor] 25 mg PO DAILY 08/19/18 [History] Aspirin Enteric Coated [Aspirin EC] 81 mg PO DAILY #30 tablet. 08/21/18 [Rx] Atorvastatin [Lipitor] 80 mg PO HS #60 tablet 08/21/18 [Rx] Lisinopril [Zestril] 10 mg PO DAILY #30 tablet 08/21/18 [Rx] Allergies/Adverse Reactions: Allergy/AdvReac Type Severity Reaction Status Date / Time No Known Allergies Allergy Verified 08/10/16 13:24 Date of admission: 08/20/18 13:32 Primary care physician: PCP NONE Consults: 08/19/18 17:08 Consult to Occupational Therapy [CONS] Routine Comment: Evaluate, develop and implement POC Reason for Consult: Possible TIA/ stroke Does patient have active BEDREST order?: No Is patient medically & hemodynamically stable?: Yes Consult to Physical Therapy [CONS] Routine Comment: Evaluate, develop and implement POC Reason for Consult: Possible TIA/ stroke Does patient have active BEDREST order?: No Is patient medically & hemodynamically stable?: Yes 08/19/18 20:58 Consult to Speech Therapy [CONS] Routine Comment: Evaluate, develop and implement POC Reason for Consult: New lacunar infarct of right posterior frontal lobe subcortial white matter. Please evaluate and treat for any ST needs. Call Completed: No 08/19/18 21:00 Consult to Neurology [CONS] Routine Consulting Provider: [facility] Reason for Consult: Presented with expressive aphasia. Head CT negative. Brain MRI shows acute to subacute lacunar infarct of right posterior fontal lobe subcortical white matter. Call Completed: No Discharging clinician: Zbigniew Moore Anticipated date of discharge: 08/21/18 - Constitutional Vitals: Temp Pulse Resp BP Pulse Ox 98.1 F 97 16 124/68 92 08/21/18 06:59 08/21/18 06:59 08/21/18 08:47 08/21/18 06:59 08/21/18 08:47 General appearance: Present: cooperative, mild distress, A&O X 3, pleasant, obese, answers questions appropriately Exam: . - Respiratory Respiratory exam: Present: CTAB. Absent: accessory muscle use, rales, rhonchi, wheezes - Cardiovascular Cardiovascular exam: Present: RRR, +S1, +S2. Absent: diastolic murmur, gallop, rubs, systolic murmur - GI/Abdominal GI/Abdominal exam: Present: normal bowel sounds, soft, no peritoneal signs. Absent: distended, tenderness - Neurological Exam Neurological exam: Present: CN II-XII intact, oriented X3, no focal deficits, strengths equal and symetr throughout, speech deficit. Absent: pronater drift, facial droop - Patient Status Disposition: Home Health Service Condition: Good Functional capacity at discharge: uses cane/walker Overall status at discharge: patient is not back to baseline - Ambulatory Orders Ambulatory Orders: Consult to Speech Therapy [CONS] Time Frame: 2 Days, Facility: [facility], Location: Speech Therapy - Discharge Instructions Follow Up With: NONE,PCP [Primary Care Provider] - (in 1- 2 weeks) Miguel Garcia DO [Partnered Physician] - (CKD in 1-2 weeks) Additional Instructions: Per speech therapy, dysphagia evaluation completed. Recommended regular diet with thin liquids and to alternate liquids and solids. Patient does have dysphagia of the pharyngeal phase. - Diet and Activity Activity: as per physical therapy Diet: diabetic diet, low fat, low cholesterol, low salt diet
--- NOTE | 2018-08-21 10:47 | Physician Discharge Referral ---
Home Health/Hosp Referral Info Transfer to: Home Health Provider in Charge Post Discharge: PCP - Diagnosis (1) CVA (cerebral vascular accident) Priority: Primary Status: Acute (2) Expressive aphasia Priority: Secondary Status: Acute (3) Chronic kidney disease, stage III (moderate) Priority: Secondary Status: Chronic (4) Essential hypertension Priority: Secondary Status: Chronic (5) Tobacco abuse Priority: Secondary Status: Chronic (6) Prediabetes Priority: Secondary Status: Acute - Respiratory Orders Smoking Cessation: Smoking cessation has been advised. For more information, call the [place] Tobacco Quit Line at 7-216-QYLN-NOW. - Diet/Nutrition Diet/Nutrition Orders: Cardiac Diet/Nutrition: List: Thin liquids. Alternate liquids and solids - Activity Activity Orders: Walker - Services Needed Following services are medically necessary services: Nursing, Physical Therapy, Occupational Therapy, Speech Therapy - Transfer Medications Prescriptions: Aspirin Enteric Coated [Aspirin EC] 81 mg PO DAILY #30 tablet. Atorvastatin [Lipitor] 80 mg PO HS #60 tablet Lisinopril [Zestril] 10 mg PO DAILY #30 tablet Home Medications: amLODIPine [Norvasc] 5 mg PO DAILY 08/10/16 [History] Aspirin [Ecotrin] 325 mg PO DAILY 30 Days #30 tablet. 08/18/18 [Rx] Budesonide/Formoterol 160/4.5 [Symbicort 160/4.5] 1 puff IH BIDR 08/19/18 [History] Furosemide [Lasix] 40 mg PO DAILY 08/19/18 [History] Gabapentin [Neurontin] 300 mg PO BID 08/19/18 [History] Metoprolol [Lopressor] 25 mg PO DAILY 08/19/18 [History] Aspirin Enteric Coated [Aspirin EC] 81 mg PO DAILY #30 tablet. 08/21/18 [Rx] Atorvastatin [Lipitor] 80 mg PO HS #60 tablet 08/21/18 [Rx] Lisinopril [Zestril] 10 mg PO DAILY #30 tablet 08/21/18 [Rx] Allergies/Adverse Reactions: Allergy/AdvReac Type Severity Reaction Status Date / Time No Known Allergies Allergy Verified 08/10/16 13:24 Certification: Further, I certify that my clinical findings support that this patient is homebound (i.e. absences from home require considerable and taxing effort and are for medical reasons or [employer] services or infrequently or short duration when for other reasons) because: Homebound Reason: Patient requires assistance of a person or device to safely leave home Attestation: My signature below is to certify that this patient is under my care and that I, or nurse practitioner, or a physician's surgeon's assistant working with me, has a [id number] encounter with this patient.
== END 2018-08-21 13:32 | disposition home health service (06) | DRG 65 ==
LOC: EMEROOARM 14:41 → 3BNU 14:41
PROVIDERS: ADMIT Internal Medicine; ATTEND Internal Medicine